=== PATIENT | male | born 1990 | race Caucasian/White ===

== ENCOUNTER 2017-10-15 03:14 | Emergency (ER) | payer MEDICAID | END 2017-10-15 05:07 | disposition home or self-care (01) | LOC: D.ER 03:14 | DX: B34.9 Viral infection, unspecified (principal); F17.200 Nicotine dependence, unspecified, uncomplicated; J42 Unspecified chronic bronchitis ==

== ENCOUNTER 2019-03-12 10:54 | Emergency (ER) | payer MEDICAID ==
[~2019-03-12] VITALS: Ht 170.2 cm; Wt 70.5 kg
[2019-03-12 11:03] VITALS: Ht 170.2 cm; Wt 70.5 kg
[2019-03-12] MEDS ORDERED: KLONOPIN1 MG PO (11:05)
--- NOTE | 2019-03-12 11:43 | NUR ---
The patient has a hx of bipolar, he scores low on the suicide assessment and he does not require 1:1 observation.
[2019-03-12] MEDS ORDERED: TORADOL10 MG PO (13:09)
[2019-03-12] MEDS ORDERED: CLEOCIN HCL300 MG PO (13:09)
[2019-03-12 13:38] VITALS: BP 118/82
== END 2019-03-12 13:39 | disposition home or self-care (01) ==
LOC: D.ER 10:54
DX: K02.9 Dental caries, unspecified (principal); K08.89 Other specified disorders of teeth and supporting structures